=== PATIENT | female | born 1990 | race Caucasian/White ===

== ENCOUNTER 2023-05-23 14:55 | Emergency (ER) | payer MEDICAID, SELFPAY ==
[2023-05-23 14:56] VITALS: BP 122/62; PULSE 84; RESP 16; TEMP 36.4; O2SAT 98; BMI 27.3
[2023-05-23] MEDS: Ketorolac 30 MG/ML Syringe IM (15:24)
--- NOTE | 2023-05-23 15:25 | EX.ED.DYSGE1 ---
HPI <SURINDER Cullen - Last Filed: 05/23/23 15:40> History of Present Illness Chief Complaint: Back Narrative Narrative: Patient is a 33-year-old female with no significant medical history presents to the emergency department with complaints of right-sided lower back pain that radiates down the right leg. Patient states that she was working on Wednesday which was 5 days ago, she felt that after her shift she felt soreness to her back. When she woke up the next day was severe. Patient states that she is having difficulty performing daily activities such as bending down, she denies any bowel or bladder incontinence, she denies any falling or trauma. She denies any fever or chills. Denies any history of IV drug abuse. PFSH <SURINDER Cullen - Last Filed: 05/23/23 15:40> PFSH Medical History Impingement of left shoulder Left shoulder pain Home Medications acetaminophen 500 mg tablet (Tylenol Extra Strength) 500 mg PO Q6H PRN 12/21/22 [History Last Taken Unknown] naproxen 500 mg tablet mg PO 12/21/22 [History Last Taken Unknown] metaxalone 400 mg tablet 800 mg (2 x 400 mg) PO TID #20 tabs 05/23/23 [Rx Last Taken Unknown] oxycodone-acetaminophen 5 mg-325 mg tablet (Percocet) 1 tab PO Q6H PRN pain 4 days #10 tabs 05/23/23 [Rx Last Taken Unknown] prednisone 20 mg tablet 40 mg (2 x 20 mg) PO DAILY 10 days #20 tabs 05/23/23 [Rx Last Taken Unknown] Allergy/AdvReac Type Severity Reaction Status Date / Time No Known Allergies Allergy Verified 05/23/23 15:01 Surgical History History of dental surgery Hx of section Social History Smoking Status: Current every day smoker tobacco type: e-cigarettes Electronic Cigarette Use: with nicotine alcohol intake: current alcohol intake frequency: a few times a month ROS <SURINDER Cullen - Last Filed: 05/23/23 15:40> ROS ED ROS Narrative Constitutional: Negative for fever, chills, weight loss, weakness Eyes: Negative for vision loss, vision change, double vision ENT: Negative for any sore throat, ear pain, congestion Cardiovascular: Negative for any chest pain, tightness, palpitations Respiratory: Negative for any cough, sputum production, hemoptysis, dyspnea, dyspnea on exertion, orthopnea Gastrointestinal: Negative for any abdominal pain, nausea, vomiting, diarrhea, constipation, blood in stool, blood in vomit : Negative for any urinary frequency, dysuria, retention, blood in urine Muscle skeletal: Negative for any neck pain. Positive for back pain that radiates down the right leg Neurological: Negative for any headache, syncope, dizziness Skin: Negative for any rashes, itching, abrasions, lacerations Psychiatric: Negative for any depression, anxiety, stress, suicidal ideation, homicidal ideation Hematologic: Negative for any excessive bruising, easy bleeding EXAM <Nolan Reynolds NP-[place] - Last Filed: 05/23/23 15:40> Physical Exam Narrative Exam Narrative: Vital signs reviewed. HEET: Head normocephalic atraumatic, TMs clear bilaterally. Posterior pharynx is clear, moist mucous membranes. Nares clear bilaterally. Neck: Supple with no lymphadenopathy or tenderness. No signs of meningismus. Cardiac: Regular rate and rhythm no murmurs gallops or rubs, equal peripheral pulses bilaterally. Respiratory: Lungs clear to auscultation bilaterally. No chest tenderness. Abdomen: Soft, nontender, nondistended. No abdominal bruit or pulsatile masses. No hepatosplenomegaly Extremities: No peripheral edema, no signs of gross trauma or deformity. Active full range of motion of all extremities. Intact extensor mechanism. Patient was able to stand up and ambulate. Able to perform heel-to-toe gait, positive straight leg test at approximately 40 degrees. Patient did have some pain on palpation to the SI notch. Able exhibit pain with worsening flexion and extension. When the patient was standing straight, she had minimal pain. Neuro: Cranial nerves II through XII intact, no focal neurological deficits. Skin: Clean dry and intact with no rash, purpura, petechiae, vesicles or pustules. Backs/flank: No CVA tenderness, no midline spinal tenderness, no deformity. Psych: Normal mood and affect. No SI, HI or acute psychosis. Const Vital Signs: 05/23/23 14:56 Temperature 97.5 F L Temperature Source Temporal Pulse Rate 84 Respiratory Rate 16 Blood Pressure 122/62 H Blood Pressure Mean 82 Pulse Ox 98 Oxygen Delivery Method Room Air Positive well nourished and well developed General Appearance ED: well developed <Dr. John Pink MD - Last Filed: 05/23/23 15:43> Physical Exam Const Vital Signs: 05/23/23 14:56 Temperature 97.5 F L Temperature Source Temporal Pulse Rate 84 Respiratory Rate 16 Blood Pressure 122/62 H Blood Pressure Mean 82 Pulse Ox 98 Oxygen Delivery Method Room Air MDM <Nolan AbarcaSURINDER brenner - Last Filed: 05/23/23 15:40> [facility] Treatment and Re-Evaluation :: Patient appears to be in no obvious respiratory distress, vital signs are stable. Patient appears nontoxic. Patient presents to the emergency department with right lower back pain that rates down the right leg. Differential diagnosis includes however is not limited to: Lumbar strain, sciatica, lumbar fracture, cauda equina, spinal abscess. Due to the lack of red flag signs, the lack of fever, chills, infectious-like process, there is no evidence suspect any spinal abscess. Patient is full range of motion of the lower extremities, there is no weakness. Patient will be given IM Toradol, she will be discharged home on naproxen, Skelaxin. She will receive a work note for the next 2 to 3 days. She instructed to perform gentle stretching ice and heat with the medications. At this time, no x-rays are indicated. There is no trauma. Patient is agreeable, stable for discharge. Patient stable. Patient given Percocet. Follow-up outpatient. Adequate work time off. <Dr. John Pink MD - Last Filed: 05/23/23 15:43> [facility] Narrative Medical decision making narrative: I have personally performed a face to face assessment of the patient and have reviewed the PATRICIA Note. I performed a substantive portion of the visit including all aspects of the following. My dumont findings include: History is-year-old female with atraumatic back pain with radiation to her right anterior thigh for about 5 days. Nothing particular makes it better or worse. No prior back surgery. Denies any bowel or bladder incontinence. No leg weakness or numbness. denies any specific Injury or trauma. No fever. Exam is [well-appearing 33-year-old female. Vital signs stable afebrile. H EENT exam unremarkable. Neck nontender. Lungs clear. Heart regular rhythm no murmur. Abdomen soft nontender. Normal bowel sounds. Back spine nontender. Left SI nontender right SI really not significantly tender. No redness or warmth. No signs of trauma or bruising. No bony tenderness or deformity. Muscles are soft and nontender with no signs of muscle spasm. She has normal motor strength and sensation in both upper and lower extremities. Normal medial thigh sensation. No cauda equina. Normal dorsi plantarflexion. Negative straight leg raise bilaterally.] Medical Decision Making [33-year-old with atraumatic low back pain. May be secondary to a disc. Does not need imaging at this time. Will be placed on prednisone 40 mg a day for 10 days. Limited Percocet 10 no refill for pain. She was given IM Toradol here. She will follow-up with her primary care physician in a week to ensure she is improving if she is not improving they may have to get imaging such as an MRI. She knows if she gets worse such as leg weakness, numbness or incontinence she needs to return.] Other additions or changes: [None] History & Record Review Discussion w/independent historian: Patient Discharge Plan Triage Chief Complaint: Back ED Midlevel Provider: Nolan Reynolds ED Provider: John Pink Dx/Rx/DC Orders Clinical Impression: Sciatica, Lumbar strain, Back pain Instructions: How Your Back Works, ED Back Pain (Acute or Chronic), ED Back Sprain/Strain, ED Sciatica Prescriptions: New oxycodone-acetaminophen [Percocet] 5-325 mg tablet 1 tab PO Q6H PRN (Reason: pain) 4 Days Qty: 10 0RF prednisone 20 mg tablet 40 mg PO DAILY 10 Days Qty: 20 0RF metaxalone 400 mg tablet 800 mg PO TID Qty: 20 0RF No Action naproxen 500 mg tablet PO Patient Comments: take 1 (ONE) tablet by mouth two times daily, as needed for pain acetaminophen [Tylenol Extra Strength] 500 mg tablet 500 mg PO Q6H PRN Stand Alone Forms: ED Work / School Excuse Primary Care Provider: Carlee Salazar NP Referrals: Carlee Salazar NP, GENERAL TECHNICIAN-C [Primary Care Provider] - 1 Week Activity Restrictions/Additional Instructions: Prednisone daily 40 mg a day for the next 10 days. This will decrease inflammation possibly help if you have an inflamed disc. Limited Percocet for pain. Off work today and Wednesday. Follow-up with your doctor in the next 7 to 10 days to ensure you are improving. If is getting a lot worse develop leg weakness, numbness or incontinence you return to the ER. If it is not proving you very well may need an outpatient MRI. Disposition Disposition: Home, Self Care
== END 2023-05-23 15:51 | disposition home or self-care (01) ==
PROVIDERS: Emergency Provider Emergency Medicine; PCP Nurse Practitioner Family; Visit Provider Emergency Medicine
DX: S39.012A Strain of muscle, fascia and tendon of lower back, initial encounter (principal); F17.210 Nicotine dependence, cigarettes, uncomplicated; M54.40 Lumbago with sciatica, unspecified side; X58.XXXA Exposure to other specified factors, initial encounter
CPT/HCPCS: 96372; 99282

== ENCOUNTER 2023-11-10 06:54 | Emergency (ER) | payer OTHER, MEDICAID, SELFPAY ==
[2023-11-10 06:54] VITALS: BP 126/84; PULSE 77; RESP 18; TEMP 36.6; O2SAT 98; BMI 25.8
--- NOTE | 2023-11-10 07:13 | RAD_ITS ---
STUDY: X-RAY - LUMBAR SPINE REASON FOR EXAM: Female, 33 years old. pain TECHNIQUE: 5 view(s) of the lumbar spine were obtained. COMPARISON: 12/24/2022 FINDINGS: Normal lumbar lordosis. Suspect mild levoscoliosis of the thoracolumbar spine. There is a normal alignment of the vertebrae. Normal vertebral bodies and endplates. Normal disc space heights. The soft tissue structures are unremarkable. RAD/L/S Spine Min 4 Views IMPRESSION: Mild levoscoliosis. Electronically Signed: José Luis Longoria MD at 8:36 EDT ,
[2023-11-10] MEDS: Ketorolac 30 MG/ML Syringe IM (07:25)
[2023-11-10] MEDS: Orphenadrine 60 MG/2 ML Ampul IM (07:51)
--- NOTE | 2023-11-10 08:46 | EDS_ITS ---
HPI History of Present Illness Chief Complaint: Back Informant: patient Narrative Narrative: Patient is a 33-year-old female with no reported significant past medical history. She states she was at work last night into this morning (she works transportation operations manager) and as she was helping to transfer/move the patient she developed pain in her right low back. She states that the pain radiates slightly into her buttock/thigh. She states has been no loss of bowel or bladder control or IV drug use. She denies any urinary symptoms or concern for . However with persistent pain and difficulty doing her job secondary to it she comes in for evaluation [facility] Medical History Impingement of left shoulder Left shoulder pain Home Medications ?Medication ?Instructions ?Recorded ?Last Taken ?Type methocarbamol 500 mg tablet 1,000 mg (2 x 500 mg) PO 4X/DAY 11/10/23 Unknown Rx PRN Muscle pain/spasm #56 tabs prednisone 20 mg tablet 40 mg (2 x 20 mg) PO DAILY 5 days 11/10/23 Unknown Rx #10 tabs Allergy/AdvReac Type Severity Reaction Status Date / Time No Known Allergies Allergy Verified 11/10/23 06:55 Surgical History History of dental surgery Hx of section Social History Smoking Status: Current every day smoker tobacco type: e-cigarettes Electronic Cigarette Use: with nicotine alcohol intake: current alcohol intake frequency: a few times a month [facility] ED Constitutional Constitutional ED: Denies chills or fever(s) ENT ENT ED: Denies sore throat Cardiovascular Cardiovascular: Denies chest pain Respiratory/Chest Respiratory/Chest: Denies cough or dyspnea Gastrointestinal Gastrointestinal: Denies abdominal pain, diarrhea, nausea or vomiting Genitourinary Genitourinary ED: Denies dysuria, hematuria or urinary frequency Musculoskeletal Musculoskeletal: Reports back pain Integumentary Denies rash Neurologic Neurologic: Denies headache(s), paresthesias or weakness Hematologic/Lymphatic Hematologic/Lymphatic: Denies easy bleeding or easy bruising EXAM Physical Exam Const Vital Signs: 11/10/23 06:54 11/10/23 09:22 Temperature 97.8 F 97.7 F L Temperature Source Oral Pulse Rate 77 69 Respiratory Rate 18 16 Blood Pressure 126/84 H 124/91 H Blood Pressure Mean 98 102 Pulse Ox 98 99 Oxygen Delivery Method Room Air Positive well nourished and well developed General Appearance ED: well developed; Negative for pallor HEENT HEENT Narrative: Normocephalic atraumatic Eyes PERRL and EOMs intact bilaterally General Eye ED: Negative for scleral icterus Neck supple Resp normal respiratory effort and clear to auscultation bilaterally Cardio regular rate and regular rhythm GI normal to inspection, nondistended, normoactive bowel sounds, non-tender, non- distended and no masses Auscultation: normoactive bowel sounds Palpation: soft Back/Spine Back/Spine Narrative: No bony deformity or step-off of the thoracic or lumbar spine no midline tenderness to palpation There is right paralumbar tension and spasm noted that worsens with extension and rotation No saddle anesthesia. Negative straight leg raise. No clonus or Babinski. Patellar reflexes are plus 2 out of 4 bilaterally Extremity normal to inspection Neuro oriented x3, CN's II-XII intact bilaterally and no sensory deficits noted Sensorium / Orientation: alert Motor Exam: strength 5/5 throughout Psych mental status grossly normal Skin no rashes or lesions noted and no wounds General Skin Exam: Negative for jaundice or pallor MDM MDM MDM Narrative Medical decision making narrative: Patient arrived to the ER with stable vitals and reported pain in the right low back after a lifting/turning mechanism. Differential diagnosis is for lumbosacral strain versus piriformis syndrome versus compression fracture versus spondylolisthesis. Secondary to this an x-ray was obtained. As the patient did not have loss of bowel or bladder control or reported IV drug use I have low concern that this is cauda equina or epidural abscess. Also there is no CVA pain going against kidney stone and she denies any urinary symptoms going against UTI or pyelonephritis. Therefore I felt only need for an x-ray and this revealed no acute bony abnormality which correlates with the fact patient's symptoms are musculoskeletal in nature. Therefore at this time she can be given symptomatic medication and is otherwise safe for discharge. History & Record Review Discussion w/independent historian: Patient Radiography Diagnostic Testing: Clinical Impression(s) from Imaging Studies Lumbar Spine X-Ray 11/10/23 07:13 IMPRESSION: Mild levoscoliosis. Electronically Signed: José Luis Longoria MD at 8:36 EDT , Lumbosacral spine x-rays as interpreted by the emergency medicine physician reveals no acute compression fracture or spondylolisthesis. Discharge Plan Triage Chief Complaint: Back ED Provider: Masood Rodriguez Dx/Rx/DC Orders Clinical Impression: Acute lumbosacral myofascial strain Instructions: Understanding Lumbosacral Strain, ED Back Sprain/Strain Prescriptions: New methocarbamol 500 mg tablet 1,000 mg PO 4X/DAY PRN (Reason: Muscle pain/spasm) Qty: 56 1RF prednisone 20 mg tablet 40 mg PO DAILY 5 Days Qty: 10 0RF Primary Care Provider: Carlee Salazar NP Referrals: Carlee Salazar NP, ADVERTISING VICE PRESIDENT-C [Primary Care Provider] - Activity Restrictions/Additional Instructions: Please continue to stretch and heat your back to reduce pain and speed healing. Follow-up with Workmen's Compensation as directed by your human resources department and return to the ER should you have any further concerns Print Language: Serbian Disposition Disposition: Home, Self Care Discharge Date/Time: 11/10/23 09:24
[2023-11-10 09:22] VITALS: BP 124/91; PULSE 69; RESP 16; TEMP 36.5; O2SAT 99
== END 2023-11-10 09:24 | disposition home or self-care (01) ==
PROVIDERS: Emergency Provider Emergency Medicine; PCP Nurse Practitioner Family; Visit Provider Emergency Medicine
DX: S39.012A Strain of muscle, fascia and tendon of lower back, initial encounter (principal); X58.XXXA Exposure to other specified factors, initial encounter; Y93.89 Activity, other specified; Y99.0 Civilian activity done for income or pay; Y92.89 Other specified places as the place of occurrence of the external cause; F17.290 Nicotine dependence, other tobacco product, uncomplicated
CPT/HCPCS: 72110; 96372; 99283